=== PATIENT | female | born 1965 | race Caucasian/White ===

== ENCOUNTER 2016-06-17 14:55 | Emergency (ER) | payer OTHER ==
[~2016-06-17] VITALS: Ht 162.6 cm; Wt 128.8 kg
[~2016-06-17 14:55] MED LIST: FUROSEMIDE20 MG PO; GLUCOTROL10 MG PO; LEXAPRO10 MG PO; LOSARTAN POTASS25 M1 PO; METFORMIN850 M1 PO; NOVOLIN 70/3010 ML SC; PHEDML; PROINH; SIMVASTATIN10 M1 PO
[2016-06-17 15:39] LABS: microscopic required? NO
[2016-06-17 15:46] LABS: UA SPECIFIC GRAVITY >=1.030 (1.005-1.035); urine erythrocyte NEGATIVE (NEGATIVE)
[2016-06-17 15:46] LABS: BASOPHIL % 0.6 % (0-2); PLATELET COUNT 306 x10^3mcL (130-400)
[2016-06-17 15:53] LABS: RED CELL DISTRIBUTION WIDTH 15.2 % (11.5-14.5)
[2016-06-17 15:56] LABS: CALCIUM 8.9 mg/dL (8.5-10.1); CARBON DIOXIDE 27.2 mmol/L (21-32); CHLORIDE SERUM 102 mmol/L (98-107); CREATININE SERUM 0.7 mg/dL (0.6-1.0); GFR1 > 60 mL/min; GLUCOSE SERUM 144 mg/dL (74-106); POTASSIUM SERUM 3.6 mmol/L (3.5-5.1); SODIUM SERUM 139 mmol/L (136-145)
[2016-06-17 16:00] LABS: ALBUMIN 3.5 g/dL (3.4-5.0); ALKALINE PHOSPHATASE 98 U/L (46-116); ALT/SGPT 38 U/L (14-59); AST/SGOT 18 U/L (15-37); BILIRUBIN TOTAL 0.5 mg/dL (0.20-1.00); LIPASE 205 IU/L (73-393); TOTAL PROTEIN, SERUM 7.4 g/dL (6.4-8.2)
[2016-06-17 16:29] VITALS: BP 111/73
== END 2016-06-17 16:29 | disposition home or self-care (01) ==
LOC: ED 14:55
PROVIDERS: Emergency Medicine
DX: R10.9 Unspecified abdominal pain (principal); R42 Dizziness and giddiness; H92.02 Otalgia, left ear
CPT/HCPCS: 83880; J1885

== ENCOUNTER 2016-09-19 14:58 | Emergency (ER) | payer OTHER ==
[2016-09-19 15:08] VITALS: BP 129/67
== END 2016-09-19 16:00 | disposition left against medical advice (07) ==
LOC: ED 14:58
DX: Z53.21 Procedure and treatment not carried out due to patient leaving prior to being seen by health care provider (principal)

== ENCOUNTER 2016-10-16 11:48 | Emergency (ER) | payer OTHER ==
[~2016-10-16] VITALS: Ht 162.6 cm; Wt 128.4 kg
[2016-10-16 12:58] LABS: BASOPHIL % 0.3 % (0-2); PLATELET COUNT 271 x10^3mcL (130-400)
[2016-10-16 13:02] LABS: RED CELL DISTRIBUTION WIDTH 14.9 % (11.5-14.5)
[2016-10-16 13:10] LABS: CALCIUM 9.2 mg/dL (8.5-10.1); CARBON DIOXIDE 31.4 mmol/L (21-32); CHLORIDE SERUM 104 mmol/L (98-107); CREATININE SERUM 0.7 mg/dL (0.6-1.0); GFR1 > 60 mL/min; GLUCOSE SERUM 150 mg/dL (74-106); POTASSIUM SERUM 3.7 mmol/L (3.5-5.1); SODIUM SERUM 141 mmol/L (136-145)
[2016-10-16 13:16] LABS: ALBUMIN 3.4 g/dL (3.4-5.0); ALKALINE PHOSPHATASE 92 U/L (46-116); ALT/SGPT 54 U/L (14-59); AST/SGOT 30 U/L (15-37); BILIRUBIN TOTAL 0.51 mg/dL (0.20-1.00); CHOLESTEROL 156 mg/dL (<200); HDL CHOLESTEROL 38 mg/dL (40-60); PHOSPHOROUS 3.7 mg/dL (2.5-4.9); TOTAL PROTEIN, SERUM 7.4 g/dL (6.4-8.2); URIC ACID 3.5 mg/dL (2.6-6.0)
[2016-10-16 14:34] VITALS: BP 144/78
== END 2016-10-16 14:34 | disposition home or self-care (01) ==
LOC: ED 11:48
PROVIDERS: Emergency Medicine
DX: R07.89 Other chest pain (principal); I10 Essential (primary) hypertension; E11.9 Type 2 diabetes mellitus without complications; E78.00 Pure hypercholesterolemia, unspecified; Z79.4 Long term (current) use of insulin; Z79.84 Long term (current) use of oral hypoglycemic drugs
CPT/HCPCS: 36415; 83880; Q0092

== ENCOUNTER 2017-05-07 15:42 | Emergency (ER) | payer OTHER ==
[~2017-05-07] VITALS: Ht 162.6 cm; Wt 124.7 kg
[2017-05-07 16:13] VITALS: BP 138/76; Ht 162.6 cm; Wt 124.7 kg
== END 2017-05-07 18:02 | disposition left against medical advice (07) ==
LOC: ED 15:42
DX: Z53.21 Procedure and treatment not carried out due to patient leaving prior to being seen by health care provider (principal)

== ENCOUNTER 2018-08-11 20:09 | Emergency (ER) | payer OTHER ==
[~2018-08-11] VITALS: Ht 162.6 cm; Wt 117.0 kg
[2018-08-11 20:23] VITALS: Ht 162.6 cm; Wt 117.0 kg
[2018-08-11 20:58] LABS: BASOPHIL % 0.6 % (0-2); PLATELET COUNT 356 x10^3mcL (130-400)
[2018-08-11 20:59] LABS: RED CELL DISTRIBUTION WIDTH 15.3 % (11.5-14.5)
[2018-08-11 21:16] LABS: CALCIUM 9.2 mg/dL (8.5-10.1); CHLORIDE SERUM 102 mmol/L (98-107); CREATININE SERUM 0.6 mg/dL (0.6-1.0); GFR1 > 60 mL/min; GLUCOSE SERUM 149 mg/dL (74-106); POTASSIUM SERUM 3.7 mmol/L (3.5-5.1); SODIUM SERUM 139 mmol/L (136-145)
[2018-08-11 21:21] LABS: ALBUMIN 3.5 g/dL (3.4-5.0); ALKALINE PHOSPHATASE 83 U/L (46-116); ALT/SGPT 46 U/L (14-59); AST/SGOT 22 U/L (15-37); BILIRUBIN TOTAL 0.8 mg/dL (0.20-1.00); TOTAL PROTEIN, SERUM 7.3 g/dL (6.4-8.2)
[2018-08-11 21:50] VITALS: BP 121/77
== END 2018-08-11 22:32 | disposition home or self-care (01) ==
LOC: ED 20:09
PROVIDERS: Emergency Medicine
DX: S86.912A Strain of unspecified muscle(s) and tendon(s) at lower leg level, left leg, initial encounter (principal); I10 Essential (primary) hypertension; E11.9 Type 2 diabetes mellitus without complications; E78.00 Pure hypercholesterolemia, unspecified; Z98.84 Bariatric surgery status; X58.XXXA Exposure to other specified factors, initial encounter; Y93.89 Activity, other specified; Y92.89 Other specified places as the place of occurrence of the external cause; Y99.8 Other external cause status
CPT/HCPCS: 36415

== ENCOUNTER 2018-12-31 20:13 | Emergency (ER) | payer OTHER ==
[~2018-12-31] VITALS: Ht 162.6 cm; Wt 97.7 kg
[2018-12-31 20:50] VITALS: BP 146/84; Ht 162.6 cm; Wt 97.7 kg
== END 2019-01-01 | disposition home or self-care (01) ==
LOC: ED 20:13
DX: R10.11 Right upper quadrant pain (principal); R10.31 Right lower quadrant pain; I10 Essential (primary) hypertension; E11.9 Type 2 diabetes mellitus without complications; E78.00 Pure hypercholesterolemia, unspecified; G89.29 Other chronic pain; Z98.890 Other specified postprocedural states

== ENCOUNTER 2019-02-26 21:45 | Emergency (ER) | payer OTHER ==
[~2019-02-26] VITALS: Ht 162.6 cm; Wt 95.7 kg
[2019-02-26 21:49] VITALS: Ht 162.6 cm; Wt 95.7 kg
[2019-02-27 01:25] VITALS: BP 120/83
== END 2019-02-27 01:22 | disposition home or self-care (01) ==
LOC: ED 21:45
DX: S00.03XA Contusion of scalp, initial encounter (principal); I10 Essential (primary) hypertension; E11.9 Type 2 diabetes mellitus without complications; E78.00 Pure hypercholesterolemia, unspecified; Z98.890 Other specified postprocedural states; W18.09XA Striking against other object with subsequent fall, initial encounter; Y93.21 Activity, ice skating; Y92.89 Other specified places as the place of occurrence of the external cause; Y99.8 Other external cause status